=== PATIENT | male | born 1950 | race Caucasian/White ===

== ENCOUNTER 2023-04-16 21:11 | Inpatient (IN) | payer MEDICARE, SELFPAY ==
[2023-04-16 21:13] VITALS: BP 155/84; PULSE 66; RESP 18; TEMP 36.3; O2SAT 98; BMI 24.3
[2023-04-16 21:19] VITALS: BP 155/84; PULSE 51; O2SAT 99
--- NOTE | 2023-04-16 21:33 | HMH.EDGENADL ---
Discharge Plan Disposition Patient Disposition: Admitted Condition: Critical Chief Complaint: Abdominal Pain Prescriptions Prescriptions: No Action tamsulosin [Flomax] 0.4 mg Capsule 0.4 mg PO DAILY Referrals Follow up/Referrals: Jennifer Tyler APRN [Primary Care Provider] - See instructions Clinical Impressions Clinical Impression: SBO (small bowel obstruction) Instructions Patient Instructions: DI for Acute Abdominal Pain Discharge ED Provider: Jamal Wagoner General Adult HPI <Jamal Wagoner MD - Last Filed: 04/16/23 22:41> General Chief complaint: Abdominal Pain Stated complaint: vomiting, abd , back pain Time Seen by Provider: 04/16/23 21:14 Mode of Arrival: Wheelchair Source of Information: Patient and Spouse Limitations: No Limitations Description of Symptoms (Recalled from ER Triage Doc. by RN): Patient reports suprapubic abdominal pain that started approximately 3pm. Progressed to lower abdominal and lower back pain 8/10, described as pressure. Patient reports nausea and vomiting that started at approximately 7pm. Patient denies fever, diarrhea, cough, and dysuria at this time. History of Present Illness HPI narrative: 72-year-old male history of BPH on Flomax, no abdominal surgical history presenting with abdominal pain. Patient states that he started having abdominal pain around 3 PM while sitting in the chair. Has been able to urinate since that time, it was dark. States that bowel pain started in his lower abdomen suprapubically and has since that time radiated upward toward his navel and into his back. It is throbbing, burning. Has not had fever, diarrhea, cough, nausea or vomiting. Last bowel movement was a couple days prior to this visit and he has not been passing gas. Related Data Home Medications Medication Instructions Recorded Confirmed tamsulosin 0.4 mg capsule (Flomax) 0.4 mg PO DAILY urinary 04/16/23 04/16/23 Allergies Allergy/AdvReac Type Severity Reaction Status Date / Time No Known Allergies Allergy Verified 04/16/23 21:32 PFS <Jamal Wagoner MD - Last Filed: 04/16/23 22:41> [facility] Disclaimer: The information contained in this section may have been updated after the patient was seen, as this information can be updated by other users. Social History (Updated 04/16/23 @ 22:41 by Jamal Wagoner MD) Smoking Status: Former smoker alcohol intake: never current occupational status: retired Travel in the last 8 weeks: None <Jamal Wagoner MD - Last Filed: 04/16/23 22:41> ROS Obtained: Yes All systems reviewed & no additional complaints except as documented Physical Exam <Jamal Wagoner MD - Last Filed: 04/16/23 22:41> General General appearance: alert and in no apparent distress Head Head exam: atraumatic and normocephalic Eye Eye exam: Present normal appearance, PERRL and EOMI ENT ENT exam: Present mucous membranes moist Neck Neck exam: Present normal inspection, full ROM and trachea midline Respiratory Respiratory exam: Absent respiratory distress, wheezes, stridor, accessory muscle use or prolonged expiratory phase Cardiovascular Cardiovascular exam: Present normal rhythm Abdominal Exam Abdominal exam: Present soft and tenderness; Absent distention, guarding, rebound, rigidity, Zepeda's sign or tenderness at McBurney's Point Abdominal tenderness: Present suprapubic and moderate Extremities Exam Extremities exam: Absent edema Neurological Exam Neurological exam: Present alert, oriented X3, CN II-XII intact and normal gait; Absent motor sensory deficit Skin Skin exam: Present warm and dry; Absent diaphoresis or erythema Medical Decision Making <Jamal Wagoner MD - Last Filed: 04/16/23 22:41> Medical Records Medical records reviewed: Yes I reviewed the patient's medical records. Isac Inquiry Pt receiving controlled substance: No Isac was queried for this patient: No Vital Signs: 04/16/23 21:13 Temperature 97.4 F L Temperature Source Oral Pulse Rate [Left Radial] 66 Respiratory Rate 18 Blood Pressure [Right Arm] 155/84 H Blood Pressure Mean [Right Arm] 107 02 Sat by Pulse Oximetry 98 Oxygen Delivery Method Room Air Lab Data Lab Results 04/16/23 20:20: WBC 11.3 H, RBC 4.57 L, Hgb 14.2, Hct 44.5, MCV 97.4 H, MCH 31.1, MCHC 31.9, RDW 12.9, Plt Count 268, MPV 7.8, Neut % (Auto) 74.6, Lymph % (Auto) 19.5, Clarke % (Auto) 4.6, Eos % (Auto) 0.8, Baso % (Auto) 0.6, Neut # (Auto) 8.4 H, Lymph # (Auto) 2.2, Clarke # (Auto) 0.5, Eos # (Auto) 0.1, Baso # (Auto) 0.1, Sodium 138, Potassium 4.0, Chloride 103, Carbon Dioxide 33 H, Anion Gap 6.0, BUN 16, Creatinine 0.90, Estimated Creat Clear 67, Estimated GFR 82, Est GFR ( Amer) 100, Glucose 119 H, Lactate 1.3, Calcium 9.2, Total Bilirubin 0.6, AST 36, ALT 23, Alkaline Phosphatase 71, Total Protein 7.4, Albumin 4.4, Globulin 3.0, Albumin/Globulin Ratio 1.5, Lipase 674 H 04/16/23 22:08: Urine Color Yellow, Urine Appearance Clear, Urine pH 6.0, Ur Specific [employer] >= 1.030, Urine Protein Negative, Urine Glucose (UA) Negative, Urine Ketones Trace, Urine Blood Trace-i, Urine Nitrate Negative, Urine Bilirubin Negative, Urine Urobilinogen 0.2, Ur Leukocyte Esterase Negative, Urine RBC Occasional, Urine WBC Occasional, Ur Squamous Epith Cells Occasional, Urine Bacteria Trace, Urine Mucus 1+, Urine Yeast Occasional 04/16/23 20:20 04/16/23 20:20 Orders (Tests/Meds): ED MEDICATIONS Generic Name Dose Route Start Last Admin Trade Name Freq PRN Reason Stop Dose Admin Acetaminophen 1,000 mg 04/16/23 23:39 Acetaminophen 1,000mg/100ml Vial IV 04/16/23 23:40 ONCE ONE Hydromorphone HCl 1 mg 04/16/23 23:39 Hydromorphone 2mg/Ml Syringe IV 04/16/23 23:40 ONCE ONE Piperacillin Sod/Tazobactam 50 mls @ 100 mls/hr 04/16/23 23:45 Sod 3.375 gm/ Sodium Chloride IV 04/26/23 23:44 Q6H JOHN Sodium Chloride 1,000 mls @ 999 mls/hr 04/16/23 23:38 Sod Chlor 0.9% 1000ml Bag IV 04/17/23 00:38 .Q1H1M ONE Discontinued Medications Generic Name Dose Route Start Last Admin Trade Name Freq PRN Reason Stop Dose Admin Hydromorphone HCl 0.5 mg 04/16/23 21:34 04/16/23 21:38 Hydromorphone 2mg/Ml Syringe IV 04/16/23 21:35 0.5 mg ONCE ONE Administration Hydromorphone HCl 1 mg 04/16/23 22:55 04/16/23 22:59 Hydromorphone 2mg/Ml Syringe IV 04/16/23 22:56 1 mg ONCE ONE Administration Iopamidol 92 ml 04/16/23 22:45 04/16/23 22:46 Iopamidol-370 (76%);100ml Bottle IV 04/16/23 22:46 92 ml ONCE ONE Administration Ondansetron HCl 4 mg 04/16/23 21:34 04/16/23 21:38 Ondansetron 4mg/2ml Vial IV 04/16/23 21:35 4 mg ONCE ONE Administration Ondansetron HCl 4 mg 04/16/23 22:50 04/16/23 22:51 Ondansetron 4mg/2ml Vial IV 04/16/23 22:51 4 mg ONCE ONE Administration Sodium Chloride 40 ml 04/16/23 22:45 04/16/23 22:46 0.9 % Sodium Chloride 50 Ml Vial IV 04/16/23 22:46 40 ml ONCE ONE Administration Sodium Chloride 10 ml 04/16/23 22:45 04/16/23 22:46 Sodium Chloride 0.9% 10ml Syr (Rad Only) IV 04/16/23 22:46 10 ml ONCE ONE Administration ORDERS Category Date Time Status CT angio abdomen pelvis Stat Cat Scan 04/16/23 21:34 Completed CBC w/Auto Diff [Complete Blood Count Auto Diff] Stat Lab 04/16/23 20:20 Completed CMP [Comprehensive Metabolic Panel] Stat Lab 04/16/23 20:20 Completed Lactic Acid Stat Lab 04/16/23 20:20 Completed Lipase Stat Lab 04/16/23 20:20 Completed PT/PTT Stat Lab 04/16/23 20:20 Received UA [Urinalysis and Microscopic] Stat Lab 04/16/23 22:08 Completed Medical Decision Narrative: 72-year-old male history of BPH on Flomax, no abdominal surgical history presenting with abdominal pain. Patient states that he started having abdominal pain around 3 PM while sitting in the chair. Has been able to urinate since that time, it was dark. States that bowel pain started in his lower abdomen suprapubically and has since that time radiated upward toward his navel and into his back. It is throbbing, burning. Has not had fever, diarrhea, cough, nausea or vomiting. Last bowel movement was a couple days prior to this visit and he has not been passing gas. History obtained with patient. On arrival, patient hemodynamically stable, alert, oriented x4, appropriate, GCS 15, moving all extremities spontaneously, pupils equal and reactive to light. Full physical exam performed and significant for 72-year-old male who appears uncomfortable. His abdomen is soft, mildly distended, tenderness primarily in suprapubic region. No flank tenderness. No overlying skin changes or bruising. No rash. Afebrile, mildly hypertensive, but nontachycardic. Saturating appropriately on room air. Differential includes UTI, urinary retention, aortic pathology, appendicitis, cholecystitis, nephrolithiasis, pancreatitis, SBO, mesenteric ischemia, among others. Patient was given 0.5 mg Dilaudid, Zofran for symptomatic management and correction of underlying abnormalities. Workup independently interpreted and significant for mild leukocytosis 11.3, neutrophilia. Chemistry nonactionable. Lactate negative at 1.3. Patient's lipase is elevated at 674, LFTs and bilirubin normal. UA pending. CTA of the abdomen pelvis pending at time of handoff to oncoming physician. See radiology read for full review of final results. Prior to final imaging and disposition, care handed off to oncoming physician. <Jennifer Zepeda MD - Last Filed: 04/16/23 23:55> Vital Signs: 04/16/23 21:13 Temperature 97.4 F L Temperature Source Oral Pulse Rate [Left Radial] 66 Respiratory Rate 18 Blood Pressure [Right Arm] 155/84 H Blood Pressure Mean [Right Arm] 107 02 Sat by Pulse Oximetry 98 Oxygen Delivery Method Room Air Lab Data Lab Results 04/16/23 20:20: WBC 11.3 H, RBC 4.57 L, Hgb 14.2, Hct 44.5, MCV 97.4 H, MCH 31.1, MCHC 31.9, RDW 12.9, Plt Count 268, MPV 7.8, Neut % (Auto) 74.6, Lymph % (Auto) 19.5, Clarke % (Auto) 4.6, Eos % (Auto) 0.8, Baso % (Auto) 0.6, Neut # (Auto) 8.4 H, Lymph # (Auto) 2.2, [place] # (Auto) 0.5, Eos # (Auto) 0.1, Baso # (Auto) 0.1, Sodium 138, Potassium 4.0, Chloride 103, Carbon Dioxide 33 H, Anion Gap 6.0, BUN 16, Creatinine 0.90, Estimated Creat Clear 67, Estimated GFR 82, Est GFR ( Amer) 100, Glucose 119 H, Lactate 1.3, Calcium 9.2, Total Bilirubin 0.6, AST 36, ALT 23, Alkaline Phosphatase 71, Total Protein 7.4, Albumin 4.4, Globulin 3.0, Albumin/Globulin Ratio 1.5, Lipase 674 H 04/16/23 22:08: Urine Color Yellow, Urine Appearance Clear, Urine pH 6.0, Ur Specific [employer] >= 1.030, Urine Protein Negative, Urine Glucose (UA) Negative, Urine Ketones Trace, Urine Blood Trace-i, Urine Nitrate Negative, Urine Bilirubin Negative, Urine Urobilinogen 0.2, Ur Leukocyte Esterase Negative, Urine RBC Occasional, Urine WBC Occasional, Ur Squamous Epith Cells Occasional, Urine Bacteria Trace, Urine Mucus 1+, Urine Yeast Occasional Orders (Tests/Meds): ED MEDICATIONS Generic Name Dose Route Start Last Admin Trade Name Freq PRN Reason Stop Dose Admin Acetaminophen 1,000 mg 04/16/23 23:39 Acetaminophen 1,000mg/100ml Vial IV 04/16/23 23:40 ONCE ONE Hydromorphone HCl 1 mg 04/16/23 23:39 Hydromorphone 2mg/Ml Syringe IV 04/16/23 23:40 ONCE ONE Piperacillin Sod/Tazobactam 50 mls @ 100 mls/hr 04/16/23 23:45 Sod 3.375 gm/ Sodium Chloride IV 04/26/23 23:44 Q6H JOHN Sodium Chloride 1,000 mls @ 999 mls/hr 04/16/23 23:38 Sod Chlor 0.9% 1000ml Bag IV 04/17/23 00:38 .Q1H1M ONE Discontinued Medications Generic Name Dose Route Start Last Admin Trade Name Freq PRN Reason Stop Dose Admin Hydromorphone HCl 0.5 mg 04/16/23 21:34 04/16/23 21:38 Hydromorphone 2mg/Ml Syringe IV 04/16/23 21:35 0.5 mg ONCE ONE Administration Hydromorphone HCl 1 mg 04/16/23 22:55 04/16/23 22:59 Hydromorphone 2mg/Ml Syringe IV 04/16/23 22:56 1 mg ONCE ONE Administration Iopamidol 92 ml 04/16/23 22:45 04/16/23 22:46 Iopamidol-370 (76%);100ml Bottle IV 04/16/23 22:46 92 ml ONCE ONE Administration Ondansetron HCl 4 mg 04/16/23 21:34 04/16/23 21:38 Ondansetron 4mg/2ml Vial IV 04/16/23 21:35 4 mg ONCE ONE Administration Ondansetron HCl 4 mg 04/16/23 22:50 04/16/23 22:51 Ondansetron 4mg/2ml Vial IV 04/16/23 22:51 4 mg ONCE ONE Administration Sodium Chloride 40 ml 04/16/23 22:45 04/16/23 22:46 0.9 % Sodium Chloride 50 Ml Vial IV 04/16/23 22:46 40 ml ONCE ONE Administration Sodium Chloride 10 ml 04/16/23 22:45 04/16/23 22:46 Sodium Chloride 0.9% 10ml Syr (Rad Only) IV 04/16/23 22:46 10 ml ONCE ONE Administration ORDERS Category Date Time Status CT angio abdomen pelvis Stat Cat Scan 04/16/23 21:34 Completed CBC w/Auto Diff [Complete Blood Count Auto Diff] Stat Lab 04/16/23 20:20 Completed CMP [Comprehensive Metabolic Panel] Stat Lab 04/16/23 20:20 Completed Lactic Acid Stat Lab 04/16/23 20:20 Completed Lipase Stat Lab 04/16/23 20:20 Completed PT/PTT Stat Lab 04/16/23 20:20 Received UA [Urinalysis and Microscopic] Stat Lab 04/16/23 22:08 Completed ECG Data Tracing #1: I reviewed this ECG and interpreted as documented below: Jennifer Zepeda MD ECG initial impression date: 04/16/23 ECG initial impression time: 23:47 ECG normal with no acute: arrhythmias, ischemia, conduction abnormalities, chamber hypertrophy Arrhythmias present: sinus kimmie Medical Decision Narrative: 72-year-old male history of BPH on Flomax, no abdominal surgical history presenting with abdominal pain. Patient states that he started having abdominal pain around 3 PM while sitting in the chair. Has been able to urinate since that time, it was dark. States that bowel pain started in his lower abdomen suprapubically and has since that time radiated upward toward his navel and into his back. It is throbbing, burning. Has not had fever, diarrhea, cough, nausea or vomiting. Last bowel movement was a couple days prior to this visit and he has not been passing gas. History obtained with patient. On arrival, patient hemodynamically stable, alert, oriented x4, appropriate, GCS 15, moving all extremities spontaneously, pupils equal and reactive to light. Full physical exam performed and significant for 72-year-old male who appears uncomfortable. His abdomen is soft, mildly distended, tenderness primarily in suprapubic region. No flank tenderness. No overlying skin changes or bruising. No rash. Afebrile, mildly hypertensive, but nontachycardic. Saturating appropriately on room air. Differential includes UTI, urinary retention, aortic pathology, appendicitis, cholecystitis, nephrolithiasis, pancreatitis, SBO, mesenteric ischemia, among others. Patient was given 0.5 mg Dilaudid, Zofran for symptomatic management and correction of underlying abnormalities. Workup independently interpreted and significant for mild leukocytosis 11.3, neutrophilia. Chemistry nonactionable. Lactate negative at 1.3. Patient's lipase is elevated at 674, LFTs and bilirubin normal. UA pending. CTA of the abdomen pelvis pending at time of handoff to oncoming physician. See radiology read for full review of final results. Prior to final imaging and disposition, care handed off to oncoming physician. Jennifer Zepeda MD: CT showed closed-loop SBO so surgery was consulted and agreed to proceed emergently to OR. I ordered Zosyn, NS, dilaudid, acetaminophen, and EKG which showed sinus bradycardia for pre-op clearance. Patient proceeded to OR without acute events in the ED. Critical Care <Jamal Wagoner MD - Last Filed: 04/16/23 22:41> Critical Care Time Critical Care Time: No
--- NOTE | 2023-04-16 21:34 | CT_ITS ---
PROCEDURE INFORMATION: Exam: CTA Abdomen and Pelvis With Contrast Exam date and time: 04/16/2023 10:35 PM Age: 72 years old Clinical indication: Abdominal pain; Other: Suprapubic pain; Additional info: Severe suprapubic abdominal pain TECHNIQUE: Imaging protocol: Computed tomographic angiography of the abdomen and pelvis with contrast. Exam focused on the arteries. 3D rendering (Not supervised by radiologist): MIP and/or 3D reconstructed images were created by the technologist. Radiation optimization: All CT scans at this facility use at least one of these dose optimization techniques: automated exposure control; mA and/or kV adjustment per patient size (includes targeted exams where dose is matched to clinical indication); or iterative reconstruction. Contrast material: ISOVUE; Contrast volume: 92 ml; Contrast route: INTRAVENOUS (IV); COMPARISON: No relevant prior studies available. FINDINGS: Lungs: Benign granulomatous disease of the lung is noted. Coronary arteries: Calcific coronary artery disease is evident. Diaphragm: A small sliding hiatal hernia is present. Aorta: No aortic aneurysm. No aortic dissection. Celiac trunk and mesenteric arteries: No occlusion or significant stenosis. Renal arteries: No occlusion or significant stenosis. Right iliac arteries: No occlusion or significant stenosis. Left iliac arteries: No occlusion or significant stenosis. Left femoral/popliteal arteries: Dense focal atherosclerotic plaque in the left common femoral artery with 50-70% stenosis. Other arteries: No mesenteric arterial occlusion. Liver: No mass. Gallbladder and bile ducts: Cholelithiasis is present without findings to favor cholecystitis. No gallbladder wall thickening or pericholecystic fluid collection. Pancreas: Unremarkable. No mass. No ductal dilation. Spleen: Unremarkable. No splenomegaly. Incidental splenule formation. Adrenal glands: Unremarkable. No mass. Kidneys and ureters: Unremarkable. No solid mass. No hydronephrosis. 4 mm low-density focus in the right kidney is too small to characterize but statistically favors a benign process (no further follow-up needed). Stomach and bowel: Colonic diverticulosis is present without diverticulitis. Closed loop small bowel obstruction in the anatomical pelvis with paired adjacent transition points on axial image 129, coronal image 37. Fluid distended small bowel measures 3.0 cm diameter but severe mesenteric edema related to mesenteric vascular compromise, likely currently severe venous congestion. No pneumatosis. Appendix: Normal appendix. Intraperitoneal space: See Stomach and bowel finding. Lymph nodes: Unremarkable. No enlarged lymph nodes. Urinary bladder: Unremarkable. No mass. Reproductive: Prostatomegaly. Bones/joints: Moderate disc space height loss at L5/S1. Mild degenerative changes of both hips. Soft tissues: Unremarkable. IMPRESSION: 1. Closed loop small bowel obstruction in the anatomical pelvis with paired adjacent transition points on axial image 129, coronal image 37. Fluid distended small bowel measures 3.0 cm diameter but severe mesenteric edema related to mesenteric vascular compromise, likely currently severe venous congestion. No pneumatosis. Recommend surgical consultation. 2. No mesenteric arterial occlusion. 3. Dense focal atherosclerotic plaque in the left common femoral artery with 50-70% stenosis.
[2023-04-16] MEDS: HYDROMORPHONE 2MG/ML SYRINGE 0.5 MG IV (21:38)
[2023-04-16] MEDS: ONDANSETRON 4MG/2ML VIAL 4 MG IV ×2 (21:38→22:51)
[2023-04-16 21:47] LABS: Chloride 103 mmol/L (98-107); Sodium 138 mmol/L (136-145)
[2023-04-16 21:48] LABS: Basophils # 0.1 K/mm3 (0-0.2); Basophils % 0.6 % (0.1-2.0); Eosinophils # 0.1 K/mm3 (0.0-0.4); Eosinophils % 0.8 % (0.1-12.0); Hematocrit 44.5 % (42.0-52.0); Hemoglobin 14.2 g/dL (14.1-18.0); Lymphocytes # 2.2 K/mm3 (0.7-4.5); Lymphocytes % 19.5 % (10-50); Mean Corpuscular HGB Conc 31.9 g/dL (31.8-35.4); Mean Corpuscular Hemoglobin 31.1 pg (27.0-31.2); Mean Corpuscular Volume 97.4 fl (80-94); Mean Platelet Volume 7.8 fl (7.4-10.4); Monocytes # 0.5 K/mm3 (0.1-1.0); Monocytes % 4.6 % (1.7-9.3); Neutrophils # 8.4 K/mm3 (1.8-7.8); Neutrophils % 74.6 % (37.0-80.0); Platelet Count 268 K/mm3 (142-424); Red Blood Count 4.57 M/mm3 (4.60-6.20); Red Cell Distribution Width 12.9 % (11.5-17.5); White Blood Count 11.3 K/mm3 (4.8-10.8)
[2023-04-16 21:50] LABS: Alanine Aminotransferase 23 U/L (12-78); Alkaline Phosphatase 71 U/L (38-126); Aspartate Amino Transferase 36 U/L (17-59); Bilirubin,Total 0.6 mg/dl (0.2-1.3); Blood Urea Nitrogen 16 mg/dl (9-20); Carbon Dioxide 33 mmol/L (22.0-30.0); Creatinine Clearance Estimated 67 mL/min (50-200); Estimated Glomerular Filt Rate 82 ml/min (>60); GFR (African American) 100 ML/MIN (>60)
[2023-04-16 21:51] LABS: Albumin Level 4.4 g/dl (3.5-5.0); Albumin/Globulin Ratio 1.5 (1.1-1.8); Calcium 9.2 mg/dl (8.4-10.2); Glucose 119 mg/dl (74-100); Total Protein,Serum 7.4 g/dl (6.3-8.2)
--- NOTE | 2023-04-16 21:52 | PC.NURSE ---
Provided urinal at this time and requested patient provide a urine sample when able.
[2023-04-16 21:53] LABS: Lipase 674 U/L (23-300)
[2023-04-16 21:58] LABS: Lactic Acid 1.3 mmol/L (0.7-2.1)
[2023-04-16 22:00] VITALS: BP 157/81; PULSE 49; O2SAT 100
[2023-04-16 22:12] LABS: Microscopic, Urine URINE MICROSCOPIC (MICROSCOPIC)
[2023-04-16 22:15] LABS: Appearance,Urine CLEAR (Clear); Bilirubin,Urine Negative (Negative); Blood, Urine TRACE-I (Negative); Color,Urine YELLOW (Yellow); Glucose,Urine (UA) Negative (Negative); Ketones,Urine TRACE (Negative); Leukocyte Esterase,Urine Negative (Negative); Nitrate,Urine Negative (Negative); Protein,Urine Negative (Negative); Specific Gravity, Urine >= 1.030 (1.005-1.030); Urobilinogen,Urine 0.2 EU/dl (0.2)
--- NOTE | 2023-04-16 22:30 | PC.NURSE ---
patient to rad
[2023-04-16 22:38] LABS: Bacteria,Urine Trace /lpf; Mucus,Urine 1+ /lpf; RBC,Urine Occasional #/hpf (0-3); Squamous Epithelial Cell,Urine Occasional #/hpf (0-5); WBC,Urine Occasional #/hpf (0-3); Yeast,Urine Occasional /lpf
--- NOTE | 2023-04-16 22:41 | PC.NURSE ---
patient back from [facility]
[2023-04-16] MEDS: SODIUM CHLORIDE 0.9% 10ML SYR (RAD ONLY) 10 ML IV (22:46)
[2023-04-16] MEDS: 0.9 % SODIUM CHLORIDE 50 ML VIAL 40 ML IV (22:46)
[2023-04-16] MEDS: IOPAMIDOL-370 (76%);100ML BOTTLE 92 ML IV (22:46)
[2023-04-16] MEDS: HYDROMORPHONE 2MG/ML SYRINGE 1 MG IV ×2 (22:59→23:53)
[2023-04-16 23:00] VITALS: BP 164/85; PULSE 52; O2SAT 99
--- NOTE | 2023-04-16 23:26 | PC.NURSE ---
patient speaking with re: plan of care.
--- NOTE | 2023-04-16 23:40 | PC.NURSE ---
Dr. Flores at bedside for consent for surgery.
--- NOTE | 2023-04-16 23:45 | ECG_ITS ---
APPROVED REPORT Exam: Resting ECG HR:50 bpm ECG Measurements Heart Rate [address] 190 P 72 QRSd 99 QRS -56 QT 431 T 77 QTc 404 Conclusion SINUS BRADYCARDIA WITH SINUS ARRHYTHMIA LEFT AXIS DEVIATION [QRS AXIS < -30] ABNORMAL ECG Agree with above. -Jennifer Zepeda MD Electronically signed by : JENNIFER ZEPEDA, 04/17/2023 06:52:10
[2023-04-16] MEDS: 0.9 % SODIUM CHLORIDE 1000ML 1,000 ML 999 ML IV (23:53)
[2023-04-16] MEDS: ACETAMINOPHEN 1,000MG/100ML VIAL 1000 MG IV (23:53)
--- NOTE | 2023-04-16 23:54 | P.CONS_ITS ---
History of Present Illness *Admission Date: 04/16/23 *Reason for visit:: abdominal pain *History of present illness: 72 yo man presents with abdominal pain since 3 pm today. Sudden onset and severe. Progressed and now unbearable. Associated with n/v. Cant walk or ride in car because of how severe the pain. [facility] Disclaimer: The information contained in this section may have been updated after the patient was seen, as this information can be updated by other users. Social History (Updated 04/16/23 @ 22:41 by Jamal Wagoner MD) Smoking Status: Former smoker alcohol intake: never current occupational status: retired Travel in the last 8 weeks: None Review of Systems Review of Systems Review of systems:: pertinent systems reviewed and negative unless documented below Meds Home Medications and Allergies Home Medications Medication Instructions Recorded Confirmed Type tamsulosin 0.4 mg capsule (Flomax) 0.4 mg PO DAILY urinary 04/16/23 04/16/23 History New Prescriptions to Start Prescriptions: Allergies Allergy/AdvReac Type Severity Reaction Status Date / Time No Known Allergies Allergy Verified 04/16/23 21:32 Exam (Inpt) Vital signs and Labs for Last 24 Hours: Temp Pulse Resp BP Pulse Ox O2 Del Method 97.4 F L 66 18 155/84 H 98 Room Air 04/16/23 21:13 04/16/23 21:13 04/16/23 21:13 04/16/23 21:13 04/16/23 21:13 04/16/23 21:13 Laboratory Results - last 24 hr 04/16/23 20:20: WBC 11.3 H, RBC 4.57 L, Hgb 14.2, Hct 44.5, MCV 97.4 H, MCH 31.1, MCHC 31.9, RDW 12.9, Plt Count 268, MPV 7.8, Neut % (Auto) 74.6, Lymph % (Auto) 19.5, [place] % (Auto) 4.6, Eos % (Auto) 0.8, Baso % (Auto) 0.6, Neut # (Auto) 8.4 H, Lymph # (Auto) 2.2, [place] # (Auto) 0.5, Eos # (Auto) 0.1, Baso # (Auto) 0.1, Sodium 138, Potassium 4.0, Chloride 103, Carbon Dioxide 33 H, Anion Gap 6.0, BUN 16, Creatinine 0.90, Estimated Creat Clear 67, Estimated GFR 82, Est GFR ( Amer) 100, Glucose 119 H, Lactate 1.3, Calcium 9.2, Total Bilirubin 0.6, AST 36, ALT 23, Alkaline Phosphatase 71, Total Protein 7.4, Albumin 4.4, Globulin 3.0, Albumin/Globulin Ratio 1.5, Lipase 674 H 04/16/23 22:08: Urine Color Yellow, Urine Appearance Clear, Urine pH 6.0, Ur Specific [place] >= 1.030, Urine Protein Negative, Urine Glucose (UA) Negative, Urine Ketones Trace, Urine Blood Trace-i, Urine Nitrate Negative, Urine Bilirubin Negative, Urine Urobilinogen 0.2, Ur Leukocyte Esterase Negative, Urine RBC Occasional, Urine WBC Occasional, Ur Squamous Epith Cells Occasional, Urine Bacteria Trace, Urine Mucus 1+, Urine Yeast Occasional I & O for Labs for Last 24 Hours: Intake & Output 04/13/23 04/14/23 04/15/23 04/16/23 23:59 23:59 23:59 23:59 Weight 160 lb Constitutional: moderate distress Comment:: Ill appearing, in pain Head: Present normocephalic and atraumatic Neck: Present normal inspection Respiratory: Present CTA bilaterally Cardiac: Present Reg Rate and Rhythm GI: Present tenderness, guarding and rigidity Comments:: Very ttp with guarding Extremities: Absent edema Results Labs 04/16/23 20:20 04/16/23 20:20 Labs: Laboratory Results - last 24 hr 04/16/23 20:20: WBC 11.3 H, RBC 4.57 L, Hgb 14.2, Hct 44.5, MCV 97.4 H, MCH 31.1, MCHC 31.9, RDW 12.9, Plt Count 268, MPV 7.8, Neut % (Auto) 74.6, Lymph % (Auto) 19.5, [place] % (Auto) 4.6, Eos % (Auto) 0.8, Baso % (Auto) 0.6, Neut # (Auto) 8.4 H, Lymph # (Auto) 2.2, [place] # (Auto) 0.5, Eos # (Auto) 0.1, Baso # (Auto) 0.1, Sodium 138, Potassium 4.0, Chloride 103, Carbon Dioxide 33 H, Anion Gap 6.0, BUN 16, Creatinine 0.90, Estimated Creat Clear 67, Estimated GFR 82, Est GFR ( Amer) 100, Glucose 119 H, Lactate 1.3, Calcium 9.2, Total Bilirubin 0.6, AST 36, ALT 23, Alkaline Phosphatase 71, Total Protein 7.4, Albumin 4.4, Globulin 3.0, Albumin/Globulin Ratio 1.5, Lipase 674 H 04/16/23 22:08: Urine Color Yellow, Urine Appearance Clear, Urine pH 6.0, Ur Specific [place] >= 1.030, Urine Protein Negative, Urine Glucose (UA) Negative, Urine Ketones Trace, Urine Blood Trace-i, Urine Nitrate Negative, Urine Bilirubin Negative, Urine Urobilinogen 0.2, Ur Leukocyte Esterase Negative, Urine RBC Occasional, Urine WBC Occasional, Ur Squamous Epith Cells Occasional, Urine Bacteria Trace, Urine Mucus 1+, Urine Yeast Occasional Imaging US - abdomen: image reviewed (agree with report, closed loop bowel obstruction with mesenteric edema) Assessment and Plan *Assessment and plan (1) SBO (small bowel obstruction): Start date: 04/16/23 Problem Comment: Closed loop bowel obstruction with exam consistent with ischemia. I would recommend exploratory laparotomy and possible bowel resection. Risk of bleeding, infection, injury and anesthetic discussed and he agrees to proceed. Status: Acute Category: Medical Code(s): K56.609 - Unspecified intestinal obstruction, unspecified as to partial versus complete obstruction
[2023-04-16 23:56] LABS: Activated Partial Thrombo Time 25.8 seconds (22.8-30.6); INR 0.95 (0.9-1.1); Prothrombin Time 10.3 seconds (10.1-12.5)
[2023-04-17] VITALS (26 sets, daily range): BP systolic 125–162; BP diastolic 57–97; PULSE 51–88; RESP 16–18; TEMP 36.5–43; O2SAT 90–100; BMI 27.3
[2023-04-17] MEDS: PIPERACILLIN/TAZO 3.375 GM in 0.9 % SODIUM CHLORIDE 50 ML IV ×3 (00:26→20:43)
[2023-04-17] MEDS: FENTANYL 100MCG/2ML VIAL 100 MCG IV (00:47)
--- NOTE | 2023-04-17 00:55 | PC.NURSE ---
Patient pulse oximetry dropped to 90 % after fentanyl administration. Placed patient on 2LNC. Provider notified.
--- NOTE | 2023-04-17 00:58 | PC.NURSE ---
Dr Zepeda spoke with hospitalist for admission after surgery.
--- NOTE | 2023-04-17 00:59 | P.HP_ITS ---
History of Present Illness *Admission Date: 04/16/23 *Reason for visit:: abd pain *History of present illness: This is a 72-year-old male history of BPH on Flomax, no abdominal surgical history presenting with acute abdominal pain that started around 3 PM while sitting in the chair. Has been able to urinate since that time, it was dark. Stated that bowel pain started in his lower abdomen suprapubically and has since that time radiated upward toward his navel and into his back. It is throbbing, burning. Has not had fever, diarrhea, cough, nausea or vomiting. Last bowel movement was a couple days prior to this visit and he has not been passing gas. Associated with n/v. Admitted for treatment and management. [facility] Disclaimer: The information contained in this section may have been updated after the patient was seen, as this information can be updated by other users. Medical History (Updated 04/17/23 @ 07:08 by Jake Ivory RN) Enlarged prostate Surgical History (Updated 04/17/23 @ 07:08 by Jake Ivory RN) History of intestinal surgery Social History (Updated 04/17/23 @ 07:08 by Jake Ivory RN) Smoking Status: Former smoker alcohol intake: never substance use type: denies use current occupational status: retired Travel in the last 8 weeks: None Review of Systems Review of Systems Review of systems:: pertinent systems reviewed and negative unless documented below Meds Home Medications and Allergies Home Medications Medication Instructions Recorded Confirmed Type tamsulosin 0.4 mg capsule (Flomax) 0.4 mg PO HS URINARY SYMPTOMS 04/16/23 04/17/23 History New Prescriptions to Start Prescriptions: Allergies Allergy/AdvReac Type Severity Reaction Status Date / Time No Known Allergies Allergy Verified 04/16/23 21:32 Exam Data for Last 24 hours Vital signs and Labs for Last 24 Hours: Temp Pulse Resp BP Pulse Ox O2 Del Method 97.4 F L 66 18 155/84 H 98 Room Air 04/16/23 21:13 04/16/23 21:13 04/16/23 21:13 04/16/23 21:13 04/16/23 21:13 04/16/23 21:13 Laboratory Results - last 24 hr 04/16/23 20:20: WBC 11.3 H, RBC 4.57 L, Hgb 14.2, Hct 44.5, MCV 97.4 H, MCH 31.1, MCHC 31.9, RDW 12.9, Plt Count 268, MPV 7.8, Neut % (Auto) 74.6, Lymph % (Auto) 19.5, [place] % (Auto) 4.6, Eos % (Auto) 0.8, Baso % (Auto) 0.6, Neut # (Auto) 8.4 H, Lymph # (Auto) 2.2, [place] # (Auto) 0.5, Eos # (Auto) 0.1, Baso # (Auto) 0.1, PT 10.3, INR 0.95, APTT 25.8, Sodium 138, Potassium 4.0, Chloride 103, Carbon Dioxide 33 H, Anion Gap 6.0, BUN 16, Creatinine 0.90, Estimated Creat Clear 67, Estimated GFR 82, Est GFR ( Amer) 100, Glucose 119 H, Lactate 1.3, Calcium 9.2, Total Bilirubin 0.6, AST 36, ALT 23, Alkaline Phosphatase 71, Total Protein 7.4, Albumin 4.4, Globulin 3.0, Albumin/Globulin Ratio 1.5, Lipase 674 H 04/16/23 22:08: Urine Color Yellow, Urine Appearance Clear, Urine pH 6.0, Ur Specific [place] >= 1.030, Urine Protein Negative, Urine Glucose (UA) Negative, Urine Ketones Trace, Urine Blood Trace-i, Urine Nitrate Negative, Urine Bilirubin Negative, Urine Urobilinogen 0.2, Ur Leukocyte Esterase Negative, Urine RBC Occasional, Urine WBC Occasional, Ur Squamous Epith Cells Occasional, Urine Bacteria Trace, Urine Mucus 1+, Urine Yeast Occasional I & O for Last 24 hours: Intake & Output 04/14/23 04/15/23 04/16/23 04/18/23 23:59 23:59 23:59 00:59 Weight 72.575 kg Constitutional Constitutional: moderate distress and cooperative *Routine HEENT Exam Head: Present normocephalic and atraumatic Eye: Present EOMI, PERRL and normal accommodation ENT: Present mucous membranes moist *Routine Neck Exam Neck: Present supple, full ROM and trachea midline *Routine Respiratory Exam Respiratory: Present CTA bilaterally, normal respiratory effort and symmetric chest movement; Absent respiratory distress *Routine Cardiovascular Exam Cardiovascular: Present RRR, Normal S1, Normal S2 and bradycardia *Routine Abdominal Exam Abdominal: Present tenderness, distended, rebound, guarding and firm *Routine Rectal Exam Rectal:: deferred *Routine Genitalia Exam Genitalia:: deferred *Routine Extremities Exam Extremities: Present full ROM; Absent cyanosis, clubbing or edema *Routine Skin Exam Skin: Present intact; Absent cyanosis, erythema or rash *Routine Neurological Exam Neurological: Present alert, oriented X3, normal reflexes, moving all extremities and normal speech Routine Psychiatric Exam Psychiatric: Present cooperative, good insight and good judgment H&P: Result Imaging and Cardiology EKG: Status: image reviewed by me and Preliminary report CT scan - abdomen: Status: image reviewed by me, Preliminary report and final report Assessment and Plan *Assessment and plan (1) SBO (small bowel obstruction): Problem Comment: Closed loop bowel obstruction with exam consistent with ischemia. I would recommend exploratory laparotomy and possible bowel resection. Risk of bleeding, infection, injury and anesthetic discussed and he agrees to proceed. Status: Acute Category: Medical Code(s): K56.609 - Unspecified intestinal obstruction, unspecified as to partial versus c omplete obstruction (2) Elevated lipase: Status: Acute Category: Medical Code(s): R74.8 - Abnormal levels of other serum enzymes (3) Leukocytosis: Status: Acute Qualifiers: Leukocytosis type: unspecified Qualified Code(s): D72.829 - Elevated white blood cell count, unspecified Category: Medical Code(s): D72.829 - Elevated white blood cell count, unspecified Plan 72-year-old male history of BPH on Flomax, no abdominal surgical history presenting with acute abdominal pain that started around 3 PM while sitting in the chair. initial work up significant for mild leukocytosis 11.3, neutrophilia. Chemistry unremarkable. Lactate negative at 1.3. Patient's lipase is elevated at 674, LFTs and bilirubin normal. UA pending. CTA showed closed-loop SBO so surgery was consulted and agreed to proceed emergently to OR. I ordered Zosyn, NS, dilaudid, acetaminophen, and EKG which showed sinus bradycardia for pre-op clearance. Patient proceeded to OR without acute events in the ED. discussed wit h ER for admission. Plan as follow: - SBO: leukocytosis elevated lipase. admitted for surgical treatment surgical consult. taken to OR for emergent treatment started on zoxyn pain management. repeat labs continue IV hydration pain management monitor for sepsis and VS per unit SCD for DVT ppx. Full code Rounded on patient after nurse practitioner. Personally examined and interviewed patient. Agree with exam findings and care plan as documented. Discussed case with surgeon this morning. Continue with bowel rest, chips as tolerated. NG in place. Ambulate/early mobilization if tolerable by patient.
[2023-04-17] MEDS: LIDOCAINE 2% UROJET 10ML TP (01:47)
--- NOTE | 2023-04-17 01:53 | PC.NURSE ---
OR called inquiring if patient was ready to go and if he had his antibiotics, replied that patient was ready to go and we had just placed a sharma in the patient.
--- NOTE | 2023-04-17 04:00 | PC.NURSE ---
Report given to OR nurse Trupti.
--- NOTE | 2023-04-17 04:02 | PC.NURSE ---
pt to OR at this time
--- NOTE | 2023-04-17 05:19 | SUR.OPER ---
Per adriel Garay that patient received in the ER is all he would like for pt preoperatively
--- NOTE | 2023-04-17 05:53 | EXP.ANES.CKL ---
[facility] Disclaimer: The information contained in this section may have been updated after the patient was seen, as this information can be updated by other users. Social History (Updated 04/16/23 @ 22:41 by Jamal Wagoner MD) Smoking Status: Former smoker alcohol intake: never substance use type: denies use current occupational status: retired Travel in the last 8 weeks: None [facility] Anesthesia Checklist Patient Identification Patient Identification: Arm Band, Family ( & G-son) and Verbal (Name & ) Structural Data Admitted From: Emergency Dept Planned Operative Procedure/s: Exploratoy Lapartotomy w/ SBR Consent for Planned Operative Procedure(s) Verified: Yes Verified Documents: Surgical Consent and History and Physical NPO Status Verified Time NPO: 12:00 Chart Verification Results Verified: CBC, BMP and ECG Additional verifications Patient : No Anesthesia Reactions: No Cardiovascular Assessment Heart Sounds: S1 & S2 Pulse Rhythm: Irregular Peripheral Edema: No Airway Assessment Mallampati Score:: Class II C-Spine Mobility Assessed: Yes (FROM) TMJ Mobility Assessed: Yes Dentition: Poor Dentition (Many missing teeth. Nothing loose per pt.) Neurological Assessment Level of Consciousness: Awake, Alert, Appropriate and Follows Commands Hx Seizures: No Numbness or tingling in extremities: No Anesthesia Plan Anesthesia Risk discussed: Yes Anesthesia Plan: Verified ASA Class: III (E) Anesthesia Type: General
--- NOTE | 2023-04-17 05:59 | P.PNANES_ITS ---
[facility] Anesthesia Record Part I Anesthesia Record I Intake, IV Amount: 1,800 Hydration: Adequate Estimated blood loss (mL): 50 Urine output (mL): 100 Blood Products used (#): none Blood Pressure: 157/81 SaO2: 94 Pulse Rate: 84 Airway Patency: Patent Respiratory Rate: 18 Temperature: 97.8 F Patient is:: Awake (Talking) and Stable Stable to PACU at:: 05:50
--- NOTE | 2023-04-17 05:59 | EXP.COCOPNOT ---
Date of procedure: 04/17/23 Pre-op Diagnosis:: Closed loop bowel obstruction Post-op Diagnosis:: Same with ischemic bowel 110 cm Procedure performed:: Exploratory laparotomy with small bowel resection and lysis of adhesions Surgeon:: Joseph Flores MD Soldering Inspector(s):: Andree Anesthesia: GETA Estimated blood loss (mL): 150 Clinical Note:: Mr. Sommers is a 72-year-old gentleman that presented to the emergency department with 1 day history of severe abdominal pain of acute onset. His CT scan showed a closed-loop bowel obstruction with mesenteric edema and free fluid suggestive of bowel ischemia. His physical exam also suggested bowel compromise and he was taken urgently to the operating room for laparotomy. Operative findings:: 110 cm of ischemic small intestine. Adhesions at base of mesentery near terminal ileum Operative note:: Mr. Sommers was consented and taken to the operating room for exploratory laparotomy. He was placed in the supine position and general anesthesia was instituted without complication. His abdomen was prepped and draped in usual sterile fashion and a brief surgical pause was performed. I began the procedure with a midline laparotomy incision. I dissected down to the fascia using cautery and entered the abdomen sharply. He had some adhesions at his lower midline that were taken down using electrocautery. I immediately encountered dark and dusky bowel. It was obviously ischemic. The ischemia started about 200 cm from the ligament of Treitz. I then stapled the bowel at the transition point with a AFSHAN 75. I stapled the other end with a AFSHAN 75 at the end of the ischemia. I then used the Enseal device to take down the mesentery with good hemostasis. I then performed a [id number] stapled anastomosis with a handsewn common enterotomy in 2 layers of 3-0 Nurolon. I then closed the mesenteric defect with 3-0 Nurolon. I then ran the entirety of the small intestine and he had obvious adhesions near the terminal ileum that pin the terminal ileum down to the base of the mesentery. These were taken down sharply. I then irrigated with warm saline. I ran the entirety of the small intestine and he had over 400 cm of remaining remaining bowel. I closed the midline fascia with 0 PDS x 2 and multiple #1 interrupted Vicryl's. Subcu space was irrigated and reapproximated with skin christen. A sterile dressing was applied. He tolerated the procedure well was awoken from anesthesia and transferred to the PACU in stable condition. Condition: stable Disposition: PACU Complications:: None
[2023-04-17 07:43] LABS: Basophils % 0.2 % (0.1-2.0); Eosinophils % 0.3 % (0.1-12.0); Hematocrit 42.5 % (42.0-52.0); Hemoglobin 13.8 g/dL (14.1-18.0); Lymphocytes # 0.6 K/mm3 (0.7-4.5); Lymphocytes % 4.4 % (10-50); Mean Corpuscular HGB Conc 32.4 g/dL (31.8-35.4); Mean Corpuscular Hemoglobin 31.3 pg (27.0-31.2); Mean Corpuscular Volume 96.5 fl (80-94); Mean Platelet Volume 7.9 fl (7.4-10.4); Monocytes # 0.4 K/mm3 (0.1-1.0); Neutrophils # 12.4 K/mm3 (1.8-7.8); Neutrophils % 92.2 % (37.0-80.0); Platelet Count 252 K/mm3 (142-424); Red Blood Count 4.41 M/mm3 (4.60-6.20); Red Cell Distribution Width 12.8 % (11.5-17.5); White Blood Count 13.4 K/mm3 (4.8-10.8)
[2023-04-17 07:50] LABS: MANUAL DIFFERENTIAL MANUAL DIFFERENTIAL (MANUAL DIFF)
[2023-04-17 07:53] LABS: Alanine Aminotransferase 24 U/L (12-78); Albumin/Globulin Ratio 1.5 (1.1-1.8); Alkaline Phosphatase 64 U/L (38-126); Anion Gap 6.1 mEq/L (5-15); Aspartate Amino Transferase 34 U/L (17-59); Bilirubin,Total 0.6 mg/dl (0.2-1.3); Blood Urea Nitrogen 13 mg/dl (9-20); Calcium 8.2 mg/dl (8.4-10.2); Carbon Dioxide 28 mmol/L (22.0-30.0); Chloride 105 mmol/L (98-107); Creatinine Clearance Estimated 67 mL/min (50-200); Estimated Glomerular Filt Rate 110 ml/min (>60); GFR (African American) 133 ML/MIN (>60); Globulin 2.6 g/dL (1.3-3.2); Glucose 139 mg/dl (74-100); Potassium 4.1 mmoL/L (3.5-5.1); Sodium 135 mmol/L (136-145); Total Protein,Serum 6.6 g/dl (6.3-8.2)
[2023-04-17 08:33] LABS: Lymphocytes % 5 % (10-50); Monocytes % 4 % (2-9); Neutrophils % 91 % (42-76); Platelet Estimate Normal; RBC Morphology Normal; Total Cells Counted 100
[2023-04-17] MEDS: ACETAMINOPHEN 1,000 MG/100 ML ML 400 MG IV ×3 (09:46→21:23)
[2023-04-17] MEDS: 0.9 % SODIUM CHLORIDE 1000ML 1,000 ML 100 ML IV (09:47)
--- NOTE | 2023-04-17 11:58 | P.CONPHA_ITS ---
Pharmacy Intervention Comments: MEDICATION RECONCILIATION COMPLETE VIA PHONE CALL TO [facility] IN [place], PATIENT INTERVIEW.
--- NOTE | 2023-04-17 11:58 | HMH.PHAINT1 ---
Pharmacy Intervention Comments: MEDICATION RECONCILIATION COMPLETE VIA PHONE CALL TO [facility] IN [place], PATIENT INTERVIEW.
--- NOTE | 2023-04-17 15:46 | PC.NURSE ---
AOX4, AMBULATED TO CHAIR THIS SHIFT AND TOLERATED WELL. MEDICATED WITH JOHN TYLENOL FOR PAIN WITH GOOD EFFECTIVENESS. NG TUBE REMAINS IN PLACE TO CLWS. DENIES N/V. DSG IN PLACE TO ABD WITH SMALL AMOUNT OF SEROSANGUINEOUS DRAINAGE.
[2023-04-17] MEDS: HYDROMORPHONE 2MG/ML SYRINGE 0.5 MG IV (16:47)
[2023-04-18] VITALS: BP 131/77; PULSE 70; RESP 16; TEMP 36.5; O2SAT 96
[2023-04-18] MEDS: ACETAMINOPHEN 1,000 MG/100 ML ML 400 MG IV ×2 (02:14→08:23)
[2023-04-18] MEDS: PIPERACILLIN/TAZO 3.375 GM in 0.9 % SODIUM CHLORIDE 50 ML IV ×4 (02:14→20:47)
[2023-04-18 04:00] VITALS: BP 136/63; PULSE 69; RESP 16; TEMP 36.5; O2SAT 95; BMI 26.0
[2023-04-18] MEDS: HYDROMORPHONE 2MG/ML SYRINGE 0.5 MG IV ×4 (05:20→16:00)
[2023-04-18] MEDS: 0.9 % SODIUM CHLORIDE 1000ML 1,000 ML 100 ML IV (05:22)
--- NOTE | 2023-04-18 06:59 | P.PN_ITS ---
Subjective Patient reports: no new complaints, no flatus and no bowel movement Exam Data for Last 24 hours Vital signs and Labs for Last 24 Hours: Temp Pulse Resp BP Pulse Ox O2 Del Method O2 Flow Rate 97.7 F 69 16 136/63 95 Room Air 2 04/18/23 04:00 04/18/23 04:00 04/18/23 04:00 04/18/23 04:00 04/18/23 04:00 04/18/23 06:11 04/17/23 04:01 Laboratory Results - last 24 hr 04/17/23 07:25: WBC 13.4 H, RBC 4.41 L, Hgb 13.8 L, Hct 42.5, MCV 96.5 H, MCH 31.3 H, MCHC 32.4, RDW 12.8, Plt Count 252, MPV 7.9, Neut % (Auto) 92.2 H, Lymph % (Auto) 4.4 L, [place] % (Auto) 3.0, Eos % (Auto) 0.3, Baso % (Auto) 0.2, Neut # (Auto) 12.4 H, Lymph # (Auto) 0.6 L, [place] # (Auto) 0.4, Eos # (Auto) 0.0, Baso # (Auto) 0.0, Total Counted 100, Neutrophils % (Manual) 91 H, Lymphocytes % (Manual) 5 L, Monocytes % (Manual) 4, Platelet Estimate Normal, RBC Morphology Normal, Sodium 135 L, Potassium 4.1, Chloride 105, Carbon Dioxide 28, Anion Gap 6.1, BUN 13, Creatinine 0.70 D, Estimated Creat Clear 67, Estimated GFR 110, Est GFR ( Amer) 133 D, Glucose 139 H, Calcium 8.2 L, Total Bilirubin 0.6, AST 34, ALT 24, Alkaline Phosphatase 64, Total Protein 6.6, Albumin 4.0, Globulin 2.6, Albumin/Globulin Ratio 1.5 I & O for Last 24 hours: Intake & Output 04/15/23 04/16/23 04/17/23 04/18/23 10:59 10:59 11:59 11:59 Intake Total 991 / 991 Output Total 500 / 500 Balance 491 / 491 Weight 172 lb Constitutional Constitutional: no acute distress *Routine Respiratory Exam Respiratory: Absent respiratory distress *Routine Cardiovascular Exam Cardiovascular: Absent tachycardia *Routine Abdominal Exam Abdominal: Present soft Comments: Dressings intact. No spreading cellulitis. Progress Note: A&P Assessment and plan (1) SBO (small bowel obstruction): Problem details: Status post exploratory laparotomy with small bowel resection on April 17, 2023 Status: Acute Assessment and plan: Overall, doing well status post small bowel resection. Remove Dunham catheter Increase ambulation
[2023-04-18 07:16] LABS: Mean Corpuscular Hemoglobin 31.6 pg (27.0-31.2); Monocytes # 0.6 K/mm3 (0.1-1.0); Red Blood Count 3.93 M/mm3 (4.60-6.20)
[2023-04-18 07:22] LABS: Basophils % 0.2 % (0.1-2.0); Eosinophils % 0.3 % (0.1-12.0); Hematocrit 38.8 % (42.0-52.0); Lymphocytes # 1.7 K/mm3 (0.7-4.5); Lymphocytes % 17.5 % (10-50); Mean Corpuscular Volume 98.8 fl (80-94); Mean Platelet Volume 8.1 fl (7.4-10.4); Monocytes % 6.3 % (1.7-9.3); Neutrophils # 7.1 K/mm3 (1.8-7.8); Neutrophils % 75.6 % (37.0-80.0); Platelet Count 233 K/mm3 (142-424); Red Cell Distribution Width 12.9 % (11.5-17.5); White Blood Count 9.4 K/mm3 (4.8-10.8)
[2023-04-18 07:29] LABS: Alanine Aminotransferase 18 U/L (12-78); Albumin Level 3.4 g/dl (3.5-5.0); Albumin/Globulin Ratio 1.4 (1.1-1.8); Alkaline Phosphatase 53 U/L (38-126); Anion Gap 4.9 mEq/L (5-15); Aspartate Amino Transferase 29 U/L (17-59); Bilirubin,Total 1.1 mg/dl (0.2-1.3); Blood Urea Nitrogen 15 mg/dl (9-20); Calcium 7.9 mg/dl (8.4-10.2); Carbon Dioxide 29 mmol/L (22.0-30.0); Chloride 105 mmol/L (98-107); Creatinine Clearance Estimated 72 mL/min (50-200); Estimated Glomerular Filt Rate 82 ml/min (>60); GFR (African American) 100 ML/MIN (>60); Globulin 2.5 g/dL (1.3-3.2); Glucose 96 mg/dl (74-100); Potassium 3.9 mmoL/L (3.5-5.1); Sodium 135 mmol/L (136-145); Total Protein,Serum 5.9 g/dl (6.3-8.2)
[2023-04-18 08:04] LABS: Hemoglobin 12.4 g/dL (14.1-18.0)
--- NOTE | 2023-04-18 09:48 | HMH.PTEV ---
Physical Therapy Evaluation Rehab PT IP Evaluation Start: 04/17/23 12:42 Freq: ONCE Status: Active Protocol: Document 04/18/23 09:43 LOBO (Rec: 04/18/23 09:48 LOBO [id number]) Subjective/History History History Mr. Sommers is a 72-year-old gentleman that presented to the emergency department with 1 day history of severe abdominal pain of acute onset. His CT scan showed a closed- loop bowel obstruction with mesenteric edema and free fluid suggestive of bowel ischemia. His physical exam also suggested bowel compromise and he was taken urgently to the operating room for laparotomy. Subjective Subjective PLOF per pt report: Lives with who is able to assist daily. IND with ADLs and mobility without AD. Currently working as a [employer]. New diagnosis of cancer in past 12 No months? Rehab PT IP Eval Objective Appearance Patient Behavior Appropriate,Cooperative Patient Orientation Person,Place Difficulty following instructions none Speech Pattern Clear Ambulation Patient Able to Ambulate Yes Ambulation Observation IP General Gait Pattern Observation Wide Based Gait Ambulation Distance (feet) 20 Ambulation Assistive Device None Ambulation Ability Contact Guard/Hand Hold Balance Ability to Arise Able, w/o using arms Sitting Balance Steady, safe Standing Balance Steady, wide stance Transfers Sit to Stand Chair Transfer Ability Contact Guard/Hand Hold Rehab PT IP prob,goals,plan Problems Date of Evaluation: 04/18/23 PT IP Problems Transfers,Gait,Balance,Self care,Safety Rehab Potential Rehab Potential Good Equipment Needs Assistive Devices None / NA Plan PT Intervention Plan Transfers,Gait,Balance,Safety, Therapeutic Exercise Other Intervention Plan 1-2 times PT Plan Frequency Daily Duration LOS Discharge Goals Bed Transfer Ability Independent Sit to Stand Chair Transfer Ability Independent Ambulation Assistive Device None Ambulation Distance (feet) 30 Discharge Plan PT Discharge Plan Pt safe to d/c home when deemed medically necessary d/t current level of mobility, home set-up, and family support. Pt would benefit from skilled PT while at [facility] to prevent further functional decline and maximize safety with mobility. PT recommending PT services upon d/c to address deficits. Eval Complexity Eval Charge Codes 09670 - Moderate Complexity PHYSICIAN CERTIFICATION: I certify the specified therapy services for Diya Sommers are required, authorized, and reviewed every 30 days.
--- NOTE | 2023-04-18 09:59 | HMH.OTEV ---
OT Inpatient Evaluation Rehab OT IP Evaluation Start: 04/17/23 12:42 Freq: ONCE Status: Active Protocol: Document 04/18/23 09:53 [facility] (Rec: 04/18/23 09:59 [facility] [id number]) Rehab OT IP Assessment Subjective History Pt oriented x 3 on arrival. Pt agreeable to engage in therapy evaluation. Pt was admitted on 04/16/23 due to bowel obstruction. Mr. Sommers is a 72-year-old gentleman that presented to the emergency department with 1 day history of severe abdominal pain of acute onset. His CT scan showed a closed- loop bowel obstruction with mesenteric edema and free fluid suggestive of bowel ischemia. His physical exam also suggested bowel compromise and he was taken urgently to the operating room for laparotomy. Subjective I waited too long to come to the hospital. Prior to being in the hospital , pt lived at home with his . Pt claims normally he is independent with all ADL and IADLs. He is very active and still farms fulltime. He does not require any type of AE during funcitonal transfers . Pt also still drives. Objective Patient Orientation Person,Place,Birthday Right Upper Extremity Gross ROM WFL Left Upper Extremity Gross ROM WFL Transfer Training Sit/Stand Transfer Assist Level Contact Guard/Hand Hold Chair Transfer Ability Contact Guard/Hand Hold Chair Transfer Technique Sit to/from Ambulatory Chair Transfer Assistive Devices None Lower Body Dressing Ability Moderate Assistance Rehab OT IP prob,goals,plan Problems Date of Evaluation: 04/18/23 OT IP Problems Bed Mobility,Transfers,Balance ,Self care,Safety Rehab Potential Rehab Potential Good Equipment Needs Assistive Devices None / NA Plan OT intervention Plan Bed Mobility,Transfers,Balance ,Self care,Safety,Therapeutic Exercise OT Plan Frequency Daily Duration LOS Discharge Goals Bed Mobility Ability Assistance x1 Sit to Stand Chair Transfer Ability Supervision/Stand by Chair Transfer Ability Supervision/Stand by Chair Transfer Technique Sit to/from Ambulatory Chair Transfer Assistive Devices None Feeding Ability Assist with Tray Set Up Lower Body Dressing Ability Minimal Assistance Upper Body Dressing Ability Standby Assistance Bathing Ability Minimal Assistance Performing Toilet Hygiene Ability Minimal Assistance Overall Commode/Toilet Transfer Ability Standby Assistance Commode/Toilet Transfer Technique Sit to/from Ambulatory Commode/Toilet Transfer Assistive Grab Bars Devices Decrease in Endurance No Discharge Plan OT Discharge Plan Pt will continue to be seen for OT services while at [facility]. Pt can return home with his once he is medically stable per physician. Therapist recommends OT evaluation as needed. Eval Complexity Eval Charge Codes 71120 - Moderate Complexity PHYSICIAN CERTIFICATION: I certify the specified therapy services for Diya Sommers are required, authorized, and reviewed every 30 days.
--- NOTE | 2023-04-18 10:20 | SW/DCPLANNER ---
Addendum entered by Brigid Aranda 04/20/23 10:37: I spoke w/ patient regarding discharge plans today: patient will discharge home w/ and is not interested in home health services at this time. The plan is for this patient to discharge home today. Original Note: I spoke w/ patient and his regarding plans once medically stable for discharge. PT/OT evaluated patient and recommended home health services at time of discharge. Patient is unsure at this time if services will be needed once medically stable for discharge. I will continue to follow up w/ patient and his until ready for discharge. Discharge date is unknown at this time.
[2023-04-18] MEDS: ONDANSETRON 4MG/2ML VIAL 4 MG IV ×2 (10:56→17:48)
[2023-04-18 12:00] VITALS: BP 132/73; PULSE 68; RESP 16; TEMP 36.7; O2SAT 92
[2023-04-18] MEDS: PROCHLORPERAZINE 10MG/2ML VIAL 5 MG IV ×2 (12:51→21:56)
--- NOTE | 2023-04-18 14:08 | EXP.ACUTE.PN ---
Subjective *Date: 04/18/23 *Time: 14:08 Interval history: On room air. In bedside chair on exam. Having nausea. Family at bedside. No flatus as of yet. Denies any headache or chest pain. Medical Exam Vital signs and Labs for Last 24 Hours: Vital Signs Temp Pulse Resp BP Pulse Ox O2 Del Method 04/18/23 12:56 Room Air 04/18/23 12:00 98.0 F 68 16 132/73 92 L Room Air 04/18/23 11:05 Room Air 04/18/23 08:49 Room Air 04/18/23 08:28 Room Air 04/18/23 06:11 Room Air 04/18/23 05:00 Room Air 04/18/23 04:00 97.7 F 69 16 136/63 95 Room Air 04/18/23 02:57 Room Air 04/18/23 01:00 Room Air 04/18/23 00:00 97.7 F 70 16 131/77 96 Room Air 04/17/23 23:00 Room Air 04/17/23 21:00 Room Air 04/17/23 20:00 Room Air 04/17/23 20:00 98.3 F 65 18 129/66 96 Room Air 04/17/23 18:14 Room Air 04/17/23 18:00 98 F 66 18 136/68 96 Room Air 04/17/23 16:31 Room Air 04/17/23 15:00 Room Air 04/17/23 14:45 98.2 F 65 16 130/62 95 Room Air Intake and Output 04/17/23 04/18/23 04/18/23 23:59 07:59 15:59 Intake Total 991 / 2791 0 / 1666 1666 / 1666 Output Total 500 / 900 400 / 900 Balance 991 / 2791 -500 / 766 1266 / 766 Intake: Intake, Oral Amount 0 / 0 0 / 0 Intake, Oral Supplement Amount 0 / 0 Intake, Total IV Amount 1666 / 1666 0.9 % Sodium Chloride 1000ML 1, 1366 / 1366 000 ml @ 100 mls/hr IV .Q10H JOHN Rx#:[id number] Acetaminophen 1,000 mg In 100 100 / 100 ml @ 400 mls/hr IV Q6H [facility] Rx#: [id number] Piperacillin/Tazo 3.375 gm In 0 200 / 200 .9 % Sodium Chloride 50 ml @ 100 mls/hr IV Q6H [facility] Rx#: [id number] Infusion Intake 991 / 991 0.9 % Sodium Chloride 1000ML 1, 991 / 991 000 ml @ 100 mls/hr IV .Q10H [facility] Rx#:[id number] Output: Output, Urine Amount 500 / 900 400 / 900 Other: Number of Unmeasured Voids 0 1 Weight 78.018 kg Patient Weight 04/18/23 23:59 Weight 78.018 kg Laboratory Results - last 24 hr 04/18/23 06:16: WBC 9.4 D, RBC 3.93 L, Hgb 12.4 L D, Hct 38.8 L, MCV 98.8 H, MCH 31.6 H, MCHC 32.0, RDW 12.9, Plt Count 233, MPV 8.1, Neut % (Auto) 75.6, Lymph % (Auto) 17.5, [place] % (Auto) 6.3, Eos % (Auto) 0.3, Baso % (Auto) 0.2, Neut # (Auto) 7.1, Lymph # (Auto) 1.7, [place] # (Auto) 0.6, Eos # (Auto) 0.0, Baso # (Auto) 0.0, Sodium 135 L, Potassium 3.9, Chloride 105, Carbon Dioxide 29, Anion Gap 4.9 L, BUN 15, Creatinine 0.90 D, Estimated Creat Clear 72, Estimated GFR 82, Est GFR ( Amer) 100 D, Glucose 96 D, Calcium 7.9 L, Magnesium 2.0, Total Bilirubin 1.1, AST 29, ALT 18, Alkaline Phosphatase 53, Total Protein 5.9 L, Albumin 3.4 L D, Globulin 2.5, Albumin/Globulin Ratio 1.4 I & O for Labs for Last 24 Hours: Intake & Output 04/15/23 04/16/23 04/17/23 04/18/23 22:59 22:59 23:59 23:59 Intake Total 1666 / 1666 Output Total 900 / 900 Balance 766 / 766 Weight 78.018 kg Constitutional: Present no acute distress, average body habitus and cooperative Head: Present atraumatic and normocephalic ENT: Present normal exam Comment:: NG in right nare Neck: Present normal inspection Respiratory: Present normal respiratory effort; Absent rhonchi, wheezes or crackles Cardiac: Present Reg Rate and Rhythm GI: Present soft, tenderness (Diffuse, nonfocal. Surgical dressings clean dry and intact, small spot of bleeding marked with pen, not advancing since yesterday) and diminished bowel sounds; Absent distention Rectal (male): Present deferred Extremities: Present normal inspection and full ROM Skin: Present intact; Absent erythema Neuro: Present Grossly Intact, alert, awake, oriented x 3 and moves all extremities Assessment and Plan *Assessment and plan (1) SBO (small bowel obstruction): Problem Comment: Status post exploratory laparotomy with small bowel resection on April 17, 2023 Status: Acute Category: Medical Code(s): K56.609 - Unspecified intestinal obstruction, unspecified as to partial versus complete obstruction (2) Elevated lipase: Status: Acute Category: Medical Code(s): R74.8 - Abnormal levels of other serum enzymes (3) Leukocytosis: Status: Acute Qualifiers: Leukocytosis type: unspecified Qualified Code(s): D72.829 - Elevated white blood cell count, unspecified Category: Medical Code(s): D72.829 - Elevated white blood cell count, unspecified (4) Nausea: Status: Acute Category: Medical Code(s): R11.0 - Nausea Plan 72-year-old male history of BPH on Flomax, no abdominal surgical history presenting with acute abdominal pain that started around 3 PM while sitting in the chair. initial work up significant for mild leukocytosis 11.3, neutrophilia. Chemistry unremarkable. Lactate negative at 1.3. Patient's lipase is elevated at 674, LFTs and bilirubin normal. UA pending. CTA showed closed-loop SBO so surgery was consulted and agreed to proceed emergently to OR. I ordered Zosyn, NS, dilaudid, acetaminophen, and EKG which showed sinus bradycardia for pre-op clearance. Patient proceeded to OR without acute events in the ED. discussed with ER for admission. Continues to require inpatient management. Still on bowel rest with NG to low wall suction. Surgery consulted and assisting with care. No bowel movement yet. Problems addressed as follows: SBO: leukocytosis elevated lipase. - Surgery consulted and assisting with care. Continue bowel rest with NG to low wall suction. Sips and chips at this time. Will not advance diet until passing flatus or having bowel movements - Continue Zosyn 3.375 g every 6 hours scheduled - Continue hydromorphone 0.5 mg as needed every 2 hours for pain. Monitoring for toxicity -White cell count normal at 9.4. Electrolytes stable with potassium 3.9, magnesium 2.0. Repeat CBC, CMP, magnesium ordered for the morning. t BPH: Continue home tamsulosin Nausea: Continue Zofran as needed every 8 hours 4 mg IV. For breakthrough nausea, can continue Compazine 5 mg IV every 8 hours as needed SCD for DVT ppx. Full code N.p.o.
--- NOTE | 2023-04-18 15:08 | PC.NURSE ---
Patient states he is passing flatus. Bowel sounds hypoactive
--- NOTE | 2023-04-18 15:08 | PC.NURSE ---
Patient alert and oriented. VSS. On room air. Dilaudid for pain. Zofran and compazine for nausea with improvement of symptoms. NG to LCS with dark green output. Abdominal dressing intact. Voiding via urinal. Passing flatus. Family at bedside throughout day
[2023-04-18 16:00] VITALS: BP 144/68; PULSE 73; RESP 18; TEMP 36.7; O2SAT 93
--- NOTE | 2023-04-18 16:00 | PC.NURSE ---
Hydromorphone syringe disposed of before scanning medication. Waste witnessed by Sindi Weems RN
--- NOTE | 2023-04-18 17:45 | PC.NURSE ---
Per evangelina Tubbs to administer prn zofran now
[2023-04-18 20:00] VITALS: BP 142/74; PULSE 73; RESP 17; TEMP 36.6; O2SAT 94
[2023-04-18] MEDS: TAMSULOSIN 0.4MG CAPSULE 0.400000000000000022 MG PO (20:57)
--- NOTE | 2023-04-18 21:58 | PC.NURSE ---
abd dsg intact and no drainage outside of marked area - tenderness noted. patient has complained of nausea - administered compazine per mar at 2200. Gastric output via NGT is dark green and minimal. patient was able to tolerate swallowing PO medication and turning off suction briefly during PM med pass.
--- NOTE | 2023-04-18 23:19 | PC.NURSE ---
NGT residual: 0
[2023-04-19] VITALS: BP 138/69; PULSE 74; RESP 16; TEMP 36.6; O2SAT 100
[2023-04-19] MEDS: PIPERACILLIN/TAZO 3.375 GM in 0.9 % SODIUM CHLORIDE 50 ML IV ×4 (01:31→18:46)
[2023-04-19 04:00] VITALS: BP 151/71; PULSE 64; RESP 17; TEMP 36.6; O2SAT 91; BMI 25.7
[2023-04-19 07:32] LABS: Alanine Aminotransferase 19 U/L (12-78); Albumin Level 3.7 g/dl (3.5-5.0); Albumin/Globulin Ratio 1.3 (1.1-1.8); Alkaline Phosphatase 61 U/L (38-126); Aspartate Amino Transferase 32 U/L (17-59); Bilirubin,Total 0.8 mg/dl (0.2-1.3); Blood Urea Nitrogen 20 mg/dl (9-20); Calcium 8.4 mg/dl (8.4-10.2); Carbon Dioxide 29 mmol/L (22.0-30.0); Creatinine Clearance Estimated 70 mL/min (50-200); Estimated Glomerular Filt Rate 82 ml/min (>60); GFR (African American) 100 ML/MIN (>60); Globulin 2.9 g/dL (1.3-3.2); Glucose 99 mg/dl (74-100); Magnesium 2.1 mg/dl (1.6-2.3); Potassium 3.7 mmoL/L (3.5-5.1); Sodium 139 mmol/L (136-145); Total Protein,Serum 6.6 g/dl (6.3-8.2)
--- NOTE | 2023-04-19 07:46 | EXP.ANES.II ---
[facility] Anesthesia Record Part II Anesthesia Record Part II Discharge Time: 06:15 Destination: Medical Surgical Department PACU nurse assessment reviewed?: Yes Patient Condition:: Good Anesthesia Complications:: None Swallowing reflex intact?: Yes Airway Patency: Patent Cyanosis?: No Blood Pressure: 139/62 SaO2: 94 Respiratory Rate: 17 Pulse Rate: 75 Temperature: 97.8 F Mental Status: Alert & Oriented Pain level:: 0 Nausea and/or vomitting:: None Intake, IV Amount: 0 Hydration: Adequate
[2023-04-19 07:47] VITALS: BP 139/62; PULSE 75; RESP 17; TEMP 36.6; O2SAT 94
[2023-04-19 08:00] VITALS: BP 162/76; PULSE 84; RESP 18; TEMP 36.8; O2SAT 96
[2023-04-19 08:15] LABS: Basophils % 0.3 % (0.1-2.0); Eosinophils % 0.1 % (0.1-12.0); Hematocrit 44.1 % (42.0-52.0); Hemoglobin 15.2 g/dL (14.1-18.0); Lymphocytes # 1.8 K/mm3 (0.7-4.5); Lymphocytes % 15.1 % (10-50); Mean Corpuscular HGB Conc 34.4 g/dL (31.8-35.4); Mean Corpuscular Hemoglobin 33.9 pg (27.0-31.2); Mean Corpuscular Volume 98.4 fl (80-94); Mean Platelet Volume 8.5 fl (7.4-10.4); Monocytes # 0.7 K/mm3 (0.1-1.0); Monocytes % 5.6 % (1.7-9.3); Neutrophils # 9.6 K/mm3 (1.8-7.8); Neutrophils % 78.9 % (37.0-80.0); Platelet Count 251 K/mm3 (142-424); Red Blood Count 4.48 M/mm3 (4.60-6.20); Red Cell Distribution Width 12.8 % (11.5-17.5); White Blood Count 12.1 K/mm3 (4.8-10.8)
[2023-04-19 08:17] LABS: Anion Gap 10.7 mEq/L (5-15); Chloride 103 mmol/L (98-107)
--- NOTE | 2023-04-19 08:23 | EXP.SURG.PN ---
Subjective Patient reports: no new complaints, feels better and bowel movement Narrative: Patient reports bowel movements x 4 Exam Data for Last 24 hours Vital signs and Labs for Last 24 Hours: Temp Pulse Resp BP Pulse Ox O2 Del Method O2 Flow Rate 98 F 64 17 151/71 H 91 L Room Air 2 04/19/23 04:00 04/19/23 04:00 04/19/23 07:47 04/19/23 04:00 04/19/23 04:00 04/19/23 06:31 04/17/23 04:01 Laboratory Results - last 24 hr 04/19/23 06:30: WBC 12.1 H D, RBC 4.48 L, Hgb 15.2, Hct 44.1, MCV 98.4 H, MCH 33.9 H, MCHC 34.4, RDW 12.8, Plt Count 251, MPV 8.5, Neut % (Auto) 78.9, Lymph % (Auto) 15.1, [place] % (Auto) 5.6, Eos % (Auto) 0.1, Baso % (Auto) 0.3, Neut # (Auto) 9.6 H, Lymph # (Auto) 1.8, [place] # (Auto) 0.7, Eos # (Auto) 0.0, Baso # (Auto) 0.0, Sodium 139, Potassium 3.7, Chloride 103, Carbon Dioxide 29, Anion Gap 10.7, BUN 20 D, Creatinine 0.90, Estimated Creat Clear 70, Estimated GFR 82, Est GFR ( Amer) 100, Glucose 99, Calcium 8.4, Magnesium 2.1, Total Bilirubin 0.8, AST 32, ALT 19, Alkaline Phosphatase 61, Total Protein 6.6, Albumin 3.7, Globulin 2.9, Albumin/Globulin Ratio 1.3 I & O for Last 24 hours: Intake & Output 04/16/23 04/17/23 04/18/23 04/19/23 10:59 11:59 11:59 11:59 Intake Total 2657 / 2657 1450 / 1450 Output Total 900 / 900 1250 / 1250 Balance 1757 / 1757 200 / 200 Weight 172 lb 169 lb 8 oz Constitutional Constitutional: no acute distress *Routine Respiratory Exam Respiratory: Absent respiratory distress *Routine Cardiovascular Exam Cardiovascular: Absent tachycardia *Routine Abdominal Exam Abdominal: Present soft Comments: Incision healing without evidence of infection Progress Note: A&P Assessment and plan (1) SBO (small bowel obstruction): Problem details: Status post exploratory laparotomy with small bowel resection on April 17, 2023 Status: Acute Assessment and plan: Overall, doing well status post small bowel resection. Bowel function returned. Remove nasogastric tube Slowly advance diet
[2023-04-19 16:00] VITALS: BP 137/80; PULSE 76; RESP 20; TEMP 36.7; O2SAT 96
--- NOTE | 2023-04-19 17:03 | PC.NURSE ---
A&OX4. TOLERATING RA WELL. NG TUBE REMOVED TODAY, PT ADVANCED TO CLEAR LIQUID DIET. TOLERATING WELL THUS FAR. MIDLINE PRESENT, MEER INTACT AND APPROXIMATED. AMBULATING INDEPENDENTLY IN ROOM AND HALLWAY. HAS HAD 2 BMs THUS FAR, ONE SOLID AND ONE LIQUID. HAS HAD NO C/O PAIN OR NAUSEA. FAMILY AT BEDSIDE T/O SHIFT, IN [employer]. VSS.
[2023-04-19 19:36] VITALS: BP 129/73; PULSE 69; RESP 16; TEMP 37.3; O2SAT 95
[2023-04-19] MEDS: TAMSULOSIN 0.4MG CAPSULE 0.400000000000000022 MG PO (20:37)
[2023-04-20] MEDS: PIPERACILLIN/TAZO 3.375 GM in 0.9 % SODIUM CHLORIDE 50 ML IV ×2 (01:33→08:14)
[2023-04-20 04:00] VITALS: BP 140/69; PULSE 74; RESP 16; TEMP 36.7; O2SAT 95; BMI 25.0
--- NOTE | 2023-04-20 06:39 | PC.NURSE ---
patient done well tonight. ambulated to bathroom several times tonight with loose stools. only drunk clears tonight.
[2023-04-20 07:27] LABS: Alanine Aminotransferase 16 U/L (12-78); Albumin Level 3.7 g/dl (3.5-5.0); Albumin/Globulin Ratio 1.4 (1.1-1.8); Alkaline Phosphatase 48 U/L (38-126); Anion Gap 10.8 mEq/L (5-15); Aspartate Amino Transferase 26 U/L (17-59); Bilirubin,Total 0.8 mg/dl (0.2-1.3); Blood Urea Nitrogen 24 mg/dl (9-20); Calcium 8.6 mg/dl (8.4-10.2); Carbon Dioxide 28 mmol/L (22.0-30.0); Chloride 103 mmol/L (98-107); Creatinine Clearance Estimated 69 mL/min (50-200); Estimated Glomerular Filt Rate 94 ml/min (>60); GFR (African American) 114 ML/MIN (>60); Globulin 2.7 g/dL (1.3-3.2); Glucose 103 mg/dl (74-100); Potassium 3.8 mmoL/L (3.5-5.1); Sodium 138 mmol/L (136-145); Total Protein,Serum 6.4 g/dl (6.3-8.2)
--- NOTE | 2023-04-20 07:54 | EXP.PHA.PN ---
Subjective *Date: 04/20/23 *Time: 07:54 Medical Exam Vital signs and Labs for Last 24 Hours: Vital Signs Temp Pulse Resp BP Pulse Ox O2 Del Method 04/20/23 06:32 Room Air 04/20/23 04:43 Room Air 04/20/23 04:00 98.1 F 74 16 140/69 95 Room Air 04/20/23 03:00 Room Air 04/20/23 01:00 Room Air 04/19/23 22:45 Room Air 04/19/23 21:00 Room Air 04/19/23 20:00 Room Air 04/19/23 19:36 99.1 F 69 16 129/73 95 Room Air 04/19/23 18:38 Room Air 04/19/23 17:00 Room Air 04/19/23 16:00 98.1 F 76 20 137/80 96 Room Air 04/19/23 14:55 Room Air 04/19/23 13:00 Room Air 04/19/23 10:57 Room Air 04/19/23 09:00 Room Air 04/19/23 08:00 Room Air 04/19/23 08:00 98.2 F 84 18 162/76 H 96 Room Air Intake and Output 04/19/23 04/19/23 04/20/23 15:59 23:59 07:59 Intake Total 335 / 1887 742 / 1887 110 / 110 Output Total 0 / 700 0 / 0 Balance 335 / 1187 742 / 1187 110 / 110 Intake: Intake, Oral Amount 335 / 1137 742 / 1137 60 / 60 Intake, Total IV Amount 50 / 50 Piperacillin/Tazo 3.375 gm In 0 50 / 50 .9 % Sodium Chloride 50 ml @ 100 mls/hr IV Q6H [facility] Rx#: [id number] Output: Output, Urine Amount 0 / 450 0 / 0 Other: Number of Unmeasured Voids 1 2 Number of Bowel Movements 1 Weight 74.8 kg Patient Weight 04/20/23 23:59 Weight 74.8 kg Laboratory Results - last 24 hr 04/19/23 06:30: WBC 12.1 H D, RBC 4.48 L, Hgb 15.2, Hct 44.1, MCV 98.4 H, MCH 33.9 H, MCHC 34.4, RDW 12.8, Plt Count 251, MPV 8.5, Neut % (Auto) 78.9, Lymph % (Auto) 15.1, [place] % (Auto) 5.6, Eos % (Auto) 0.1, Baso % (Auto) 0.3, Neut # (Auto) 9.6 H, Lymph # (Auto) 1.8, [place] # (Auto) 0.7, Eos # (Auto) 0.0, Baso # (Auto) 0.0, Chloride 103, Anion Gap 10.7 04/20/23 06:35: Sodium 138, Potassium 3.8, Chloride 103, Carbon Dioxide 28, Anion Gap 10.8, BUN 24 H, Creatinine 0.80, Estimated Creat Clear 69, Estimated GFR 94, Est GFR ( Amer) 114, Glucose 103 H, Calcium 8.6, Total Bilirubin 0.8, AST 26, ALT 16, Alkaline Phosphatase 48, Total Protein 6.4, Albumin 3.7, Globulin 2.7, Albumin/Globulin Ratio 1.4 I & O for Labs for Last 24 Hours: Intake & Output 04/17/23 04/18/23 04/19/23 04/20/23 23:59 23:59 23:59 23:59 Intake Total 2416 / 2416 1777 / 1887 110 / 110 Output Total 1450 / 1450 700 / 700 0 / 0 Balance 966 / 966 1077 / 1187 110 / 110 Weight 78.018 kg 76.884 kg 74.8 kg The patient's infection will respond to the chosen ABx?: Yes Is the patient receiving the right drug, dose, and route?: Yes Could a more targeted ABx be ordered?: No (BOWEL OBSTRUCTION, NO CULTURES DRAWN)
[2023-04-20 08:00] VITALS: BP 153/74; PULSE 68; RESP 16; TEMP 36.8; O2SAT 98
--- NOTE | 2023-04-20 08:45 | EXP.SURG.PN ---
Subjective Patient reports: no new complaints, feels better and bowel movement Narrative: Nasogastric tube removed yesterday. No nausea or vomiting. Exam Data for Last 24 hours Vital signs and Labs for Last 24 Hours: Temp Pulse Resp BP Pulse Ox O2 Del Method O2 Flow Rate 98.1 F 74 16 140/69 95 Room Air 2 04/20/23 04:00 04/20/23 04:00 04/20/23 04:00 04/20/23 04:00 04/20/23 04:00 04/20/23 06:32 04/17/23 04:01 Laboratory Results - last 24 hr 04/20/23 06:35: Sodium 138, Potassium 3.8, Chloride 103, Carbon Dioxide 28, Anion Gap 10.8, BUN 24 H, Creatinine 0.80, Estimated Creat Clear 69, Estimated GFR 94, Est GFR ( Amer) 114, Glucose 103 H, Calcium 8.6, Total Bilirubin 0.8, AST 26, ALT 16, Alkaline Phosphatase 48, Total Protein 6.4, Albumin 3.7, Globulin 2.7, Albumin/Globulin Ratio 1.4 I & O for Last 24 hours: Intake & Output 04/17/23 04/18/23 04/19/23 04/20/23 11:59 11:59 11:59 11:59 Intake Total 2657 / 2657 1450 / 1450 1187 / 1187 Output Total 900 / 900 1250 / 1250 0 / 0 Balance 1757 / 1757 200 / 200 1187 / 1187 Weight 172 lb 169 lb 8 oz 164 lb 14.492 oz Constitutional Constitutional: no acute distress *Routine Respiratory Exam Respiratory: Absent respiratory distress *Routine Cardiovascular Exam Cardiovascular: Absent tachycardia *Routine Abdominal Exam Abdominal: Present soft Comments: Incision healing without evidence of infection Progress Note: A&P Assessment and plan (1) SBO (small bowel obstruction): Problem details: Status post exploratory laparotomy with small bowel resection on April 17, 2023 Status: Acute Assessment and plan: Overall, doing well status post small bowel resection. Bowel function returned. Okay from surgical standpoint for discharge home with close outpatient follow-up
[2023-04-20] MEDS: LOPERAMIDE 2MG CAPSULE 2 MG PO (09:03)
--- NOTE | 2023-04-20 09:52 | EXP.PN ---
Subjective *Date: 04/19/23 *Time: 09:52 Interval history: seen at bedside, he is feeling better than yesterday, he is passing gas Exam Data for Last 24 hours Vital signs and Labs for Last 24 Hours: Temp Pulse Resp BP Pulse Ox O2 Del Method O2 Flow Rate 98.1 F 74 16 140/69 95 Room Air 2 04/20/23 04:00 04/20/23 04:00 04/20/23 04:00 04/20/23 04:00 04/20/23 04:00 04/20/23 09:00 04/17/23 04:01 Laboratory Results - last 24 hr 04/20/23 06:35: Sodium 138, Potassium 3.8, Chloride 103, Carbon Dioxide 28, Anion Gap 10.8, BUN 24 H, Creatinine 0.80, Estimated Creat Clear 69, Estimated GFR 94, Est GFR ( Amer) 114, Glucose 103 H, Calcium 8.6, Total Bilirubin 0.8, AST 26, ALT 16, Alkaline Phosphatase 48, Total Protein 6.4, Albumin 3.7, Globulin 2.7, Albumin/Globulin Ratio 1.4 I & O for Last 24 hours: Intake & Output 04/17/23 04/18/23 04/19/23 04/20/23 23:59 23:59 23:59 23:59 Intake Total 2416 / 2416 1777 / 1887 110 / 110 Output Total 1450 / 1450 700 / 700 0 / 0 Balance 966 / 966 1077 / 1187 110 / 110 Weight 78.018 kg 76.884 kg 74.8 kg Constitutional Constitutional: no acute distress *Routine HEENT Exam Head: Present normocephalic Eye: Present EOMI and PERRL ENT: Present mucous membranes moist *Routine Neck Exam Neck: Present supple; Absent lymphadenopathy *Routine Respiratory Exam Respiratory: Present CTA bilaterally *Routine Cardiovascular Exam Cardiovascular: Present RRR *Routine Abdominal Exam Abdominal: Present soft and normoactive bowel sounds; Absent tenderness *Routine Extremities Exam Extremities: Absent cyanosis, clubbing or edema *Routine Skin Exam Skin: Present warm; Absent rash *Routine Neurological Exam Neurological: Present alert and oriented X3 Assessment and Plan *Assessment and plan (1) SBO (small bowel obstruction): Problem Comment: Status post exploratory laparotomy with small bowel resection on April 17, 2023 Status: Acute Category: Medical Code(s): K56.609 - Unspecified intestinal obstruction, unspecified as to partial versus complete obstruction (2) Elevated lipase: Status: Acute Category: Medical Code(s): R74.8 - Abnormal levels of other serum enzymes (3) Leukocytosis: Status: Acute Qualifiers: Leukocytosis type: unspecified Qualified Code(s): D72.829 - Elevated white blood cell count, unspecified Category: Medical Code(s): D72.829 - Elevated white blood cell count, unspecified (4) Nausea: Status: Acute Category: Medical Code(s): R11.0 - Nausea Plan 72-year-old male history of BPH on Flomax, no abdominal surgical history presenting with acute abdominal pain that started around 3 PM while sitting in the chair. initial work up significant for mild leukocytosis 11.3, neutrophilia. Chemistry unremarkable. Lactate negative at 1.3. Patient's lipase is elevated at 674, LFTs and bilirubin normal. UA pending. CTA showed closed-loop SBO so surgery was consulted and agreed to proceed emergently to OR. I ordered Zosyn, NS, dilaudid, acetaminophen, and EKG which showed sinus bradycardia for pre-op clearance. Patient proceeded to OR without acute events in the ED. discussed with ER for admission. Continues to require inpatient management. Still on bowel rest with NG to low wall suction. Surgery consulted and assisting with care. No bowel movement yet. Problems addressed as follows: SBO: leukocytosis elevated lipase. - Surgery consulted and assisting with care. Continue bowel rest with NG to low wall suction. Sips and chips at this time. Will not advance diet until passing flatus or having bowel movements - Continue Zosyn 3.375 g every 6 hours scheduledordered for the morning. t BPH: Continue home tamsulosin Nausea: Continue Zofran as needed every 8 hours 4 mg IV. For breakthrough nausea, can continue Compazine 5 mg IV every 8 hours as needed SCD for DVT ppx. Full code advance diet as tolerated
--- NOTE | 2023-04-20 09:54 | EXP.DC.SUM ---
General Admission date:: 04/17/23 Discharge date: 04/20/23 HPI HPI HPI: This is a 72-year-old male history of BPH on Flomax, no abdominal surgical history presenting with acute abdominal pain that started around 3 PM while sitting in the chair. Has been able to urinate since that time, it was dark. Stated that bowel pain started in his lower abdomen suprapubically and has since that time radiated upward toward his navel and into his back. It is throbbing, burning. Has not had fever, diarrhea, cough, nausea or vomiting. Last bowel movement was a couple days prior to this visit and he has not been passing gas. Associated with n/v. Admitted for treatment and management. Hospital Course Hospital Course Hospital Course: Patient was seen and evaluated at the bedside on the day of discharge. Patient wishes to be discharged. All patient questions were answered and patient was given time to ask questions. Patient was discharged in stable condition. Patient understands that she can return to ER in case of any sudden changes in health. Total time spent on DC - 38 mins he has Diarrhea which is expected after SBO resolution from GS, will give 3 days of imodium 72-year-old male history of BPH on Flomax, no abdominal surgical history presenting with acute abdominal pain that started around 3 PM while sitting in the chair. initial work up significant for mild leukocytosis 11.3, neutrophilia. Chemistry unremarkable. Lactate negative at 1.3. Patient's lipase is elevated at 674, LFTs and bilirubin normal. UA pending. CTA showed closed-loop SBO so surgery was consulted and agreed to proceed emergently to OR. I ordered Zosyn, NS, dilaudid, acetaminophen, and EKG which showed sinus bradycardia for pre-op clearance. Patient proceeded to OR without acute events in the ED. discussed with ER for admission. Continues to require inpatient management. Still on bowel rest with NG to low wall suction. Surgery consulted and assisting with care. No bowel movement yet. Problems addressed as follows: SBO: - resolved, tolerating diet, passing gas, having BMs, per GS ok to discharge leukocytosis - stable elevated lipase No indication of Abx at DC, follow up closely with GS at [facility] BPH: Continue home tamsulosin Exam Data for Last 24 hours Vital signs and Labs for Last 24 Hours: Temp Pulse Resp BP Pulse Ox O2 Del Method O2 Flow Rate 98.1 F 74 16 140/69 95 Room Air 2 04/20/23 04:00 04/20/23 04:00 04/20/23 04:00 04/20/23 04:00 04/20/23 04:00 04/20/23 09:00 04/17/23 04:01 Laboratory Results - last 24 hr 04/20/23 06:35: Sodium 138, Potassium 3.8, Chloride 103, Carbon Dioxide 28, Anion Gap 10.8, BUN 24 H, Creatinine 0.80, Estimated Creat Clear 69, Estimated GFR 94, Est GFR ( Amer) 114, Glucose 103 H, Calcium 8.6, Total Bilirubin 0.8, AST 26, ALT 16, Alkaline Phosphatase 48, Total Protein 6.4, Albumin 3.7, Globulin 2.7, Albumin/Globulin Ratio 1.4 I & O for Last 24 hours: Intake & Output 04/17/23 04/18/23 04/19/23 04/20/23 23:59 23:59 23:59 23:59 Intake Total 2416 / 2416 1777 / 1887 110 / 110 Output Total 1450 / 1450 700 / 700 0 / 0 Balance 966 / 966 1077 / 1187 110 / 110 Weight 78.018 kg 76.884 kg 74.8 kg Constitutional Constitutional: no acute distress *Routine HEENT Exam Head: Present normocephalic Eye: Present EOMI and PERRL ENT: Present mucous membranes moist *Routine Neck Exam Neck: Present supple; Absent lymphadenopathy *Routine Respiratory Exam Respiratory: Present CTA bilaterally *Routine Cardiovascular Exam Cardiovascular: Present RRR *Routine Abdominal Exam Abdominal: Present soft and normoactive bowel sounds; Absent tenderness *Routine Extremities Exam Extremities: Absent cyanosis, clubbing or edema *Routine Skin Exam Skin: Present warm; Absent rash *Routine Neurological Exam Neurological: Present alert and oriented X3 Results Data Completed and Pending Labs on day of discharge: Labs from last 24 hours 04/20/23 06:35 Sodium 138 Potassium 3.8 Chloride 103 Carbon Dioxide 28 Anion Gap 10.8 BUN 24 H Creatinine 0.80 Estimated Creat Clear 69 Estimated GFR 94 Est GFR ( Amer) 114 Glucose 103 H Calcium 8.6 Total Bilirubin 0.8 AST 26 ALT 16 Alkaline Phosphatase 48 Total Protein 6.4 Albumin 3.7 Globulin 2.7 Albumin/Globulin Ratio 1.4 DS: Diagnosis Discharge Diagnosis (1) SBO (small bowel obstruction): Status: Acute Code(s): K56.609 - Unspecified intestinal obstruction, unspecified as to partial versus complete obstruction Problem details: Status post exploratory laparotomy with small bowel resection on April 17, 2023 (2) Elevated lipase: Status: Acute Code(s): R74.8 - Abnormal levels of other serum enzymes (3) Leukocytosis: Status: Acute Code(s): D72.829 - Elevated white blood cell count, unspecified Qualifiers: Leukocytosis type: unspecified Qualified Code(s): D72.829 - Elevated white blood cell count, unspecified (4) Nausea: Status: Acute Code(s): R11.0 - Nausea Meds Home Medications and Allergies Home Medications Medication Instructions Recorded Confirmed Type tamsulosin 0.4 mg capsule (Flomax) 0.4 mg PO HS URINARY SYMPTOMS 04/16/23 04/17/23 History loratadine 10 mg tablet (Claritin) 10 mg PO DAILYP PRN Allergy 04/17/23 04/17/23 History Symptoms loperamide 2 mg capsule 2 mg PO NEEDED PRN Diarrhea 3 04/20/23 Rx days #6 caps New Prescriptions to Start Prescriptions: loperamide Ruddy Allen Allergies Allergy/AdvReac Type Severity Reaction Status Date / Time No Known Allergies Allergy Verified 04/16/23 21:32 Discharge Plan Disposition Patient Disposition: Home, Self-Care Condition: Critical Discharge Order Discharge Orders: Discharge Order (Routine); Ordered 04/20/23 Ordered By: Ruddy Allen Follow up Plan Follow up with: Jennifer Tylre APRN [Primary Care Provider] - 2 weeks Chaparro Gillespie MD [Staff Physician] - 2 weeks Prescriptions/Medication Reconciliation: New loperamide 2 mg Capsule 2 mg PO NEEDED PRN (Reason: Diarrhea) 3 Days Qty: 6 0RF Continued tamsulosin [Flomax] 0.4 mg Capsule 0.4 mg PO HS loratadine [Claritin] 10 mg Tablet 10 mg PO DAILYP PRN (Reason: Allergy Symptoms) Problem Reconciliation Problems Reviewed?: Yes Patient Discharge Instructions ACTIVITY: Ambulate as tolerated DIET: continue same diet Providers Primary Care Provider: Jennifer Tyler Admit Provider: Myles Rosenberg Attending Provider: Myles Rosenberg
--- NOTE | 2023-04-21 16:19 | CARE MANAGER ---
Called and spoke with patient's regarding recent discharge. She stated that he is doing well, has started new medication and was aware of f/u appts. No concerns voiced at time of call.
== END 2023-04-20 11:32 | disposition home or self-care (01) | DRG 330 ==
LOC: ER 23:55 → 2ND 04-17 04:09
PROVIDERS: Emergency Medicine; Nurse Practitioner Family; Student in an Organized Health Care Education/Training Program; Admitting Provider Internal Medicine Adolescent Medicine; Emergency Provider Emergency Medicine; PCP Nurse Practitioner; Visit Provider Internal Medicine Adolescent Medicine
PROC: 0DB80ZZ Excision of Small Intestine, Open Approach (ICD-10-PCS; CPT 49000; principal; 2023-04-17 03:00)
DX: K56.609 Unspecified intestinal obstruction, unspecified as to partial versus complete obstruction (principal); K55.9 Vascular disorder of intestine, unspecified; Z87.891 Personal history of nicotine dependence; N40.0 Benign prostatic hyperplasia without lower urinary tract symptoms
CPT/HCPCS: 44120; 36415; 51702; 74174; 80053; 81001; 83605; 83690; 83735; 85007; 85025; 85610; 85730; 88307; 93005; 97116; 97162; 97166; 97530; 97535; 99285; J3490; J0131; J2405; J2543; Q9967